=== PATIENT | male | born 1950 | race African-American/Black ===

== ENCOUNTER 2019-12-08 07:34 | Emergency (ER) | payer BC, OTHER ==
[~2019-12-08] VITALS: Ht 166.4 cm; Wt 83.5 kg
[~2019-12-08 07:34] MED LIST: BROM-PSE-DM CO473 ML PO; ENEMA READY TO135 ML PR; HYDROCODON-ACE1 EAC9 PO; SENNA LAXATIVE8.6 MG PO; SUCRALFATE PO; TAMSULOSIN HCL0.4 MG PO; ULTRAM 50MG50 MG PO
--- OUTSIDE RECORDS SUMMARY | 2019-12-08 07:38 | XMS REPORT ---
Author Author [facility] Address Unknown Phone Unavailable Care Team Providers Care Site Operations Manager Name Role Phone Unavailable Unavailable Payers Payer Name Policy Type Policy Number Effective Date Expiration Date Problems This patient has no known problems. Allergies, Adverse Reactions, Alerts Allergy Name Allergy Type Status Severity Reaction(s) Onset Date Inactive Date Treating Clinician Comments aspirin DA Active U 2015-11-26 00:00:00 Medications This patient has no known medications.
[2019-12-08] MEDS ORDERED: DEXAMETHASONE SOD PHOS 10 MG/1 ML VIAL IM ONE ×2 (07:45→08:15)
[2019-12-08] MEDS ORDERED: KETOROLAC TROMETHAMINE 60 MG/2 ML VIAL IM ONE (07:45)
[2019-12-08 07:47] VITALS: BP 147/100
[2019-12-08] MEDS ORDERED: DEXAMETHASONE SOD PHOS INJ 4 MG/ML VIAL IM ONE (08:15)
--- NOTE | 2019-12-08 09:31 | Diagnostic Imaging Report ---
EXAMINATION: HIP RIGHT 2-3 VW (+/- PELVIS) INDICATION: Right hip pain COMPARISON: None FINDINGS: AP view of the pelvis and AP and frog-leg views of the right hip demonstrate no acute fracture or dislocation. Alignment appears anatomic. Mild degenerative changes of both hip joints. Phleboliths in the pelvis. Nonobstructive bowel gas pattern. IMPRESSION: No acute osseous injury. Mild degenerative changes of both hip joints. Signed by: Zoraida Valdes MD on 12/08/2019 9:29 AM
== END 2019-12-08 09:38 | disposition home or self-care (01) ==
LOC: ER 07:34
DX: M46.1 Sacroiliitis, not elsewhere classified (principal); M25.551 Pain in right hip; G89.29 Other chronic pain
CPT/HCPCS: 99282; J1100; J1885